=== PATIENT | male | born 1965 | race African-American/Black ===

== ENCOUNTER 2022-09-14 20:00 | Inpatient (IN) | payer OTHER ==
[2022-09-14 23:33] VITALS: BMI 22.4
[2022-09-15] MEDS ORDERED: NALOXONE HCL 0.4 MG/ML VIAL IM PRN (06:02)
[2022-09-15] MEDS ORDERED: BENZONATATE 200 MG CAPSULE PO PRN (06:02)
[2022-09-15] MEDS ORDERED: DICYCLOMINE HCL 10 MG CAPSULE PO PRN (06:02)
[2022-09-15] MEDS ORDERED: IBUPROFEN 400 MG TABLET (FP) PO PRN (06:02)
[2022-09-15] MEDS ORDERED: MAGNESIUM HYDROX 2400MG/30ML ORAL SUSPENSION 30 ML CUP PO PRN (06:02)
[2022-09-15] MEDS ORDERED: IBUPROFEN 600 MG TABLET (FP) PO PRN (06:02)
[2022-09-15] MEDS ORDERED: POLYETHYLENE GLYCOL (HEALTHYLAX) 3350 17 GM PACKET PO PRN (06:02)
[2022-09-15] MEDS ORDERED: NALOXONE HCL (KLOXXADO) 8 MG SPRAY NS PRN (06:02)
[2022-09-15] MEDS ORDERED: BENZOCAINE/MENTHOL (CHLORASEPTIC ) LOZENGE MM PRN (06:02)
[2022-09-15] MEDS ORDERED: ACETAMINOPHEN 325 MG TABLET (FP) PO PRN (06:02)
[2022-09-15] MEDS ORDERED: MAG HYDROX/AL HYDROX/SIMETH 30 ML UNIT-DOSE CUP PO PRN (06:02)
[2022-09-15] MEDS ORDERED: BISMUTH SUBSALICYLATE 524 MG/30 ML PO PRN (06:02)
[2022-09-15] MEDS ORDERED: LOPERAMIDE HCL 2 MG CAPSULE PO PRN (06:02)
[2022-09-15] MEDS ORDERED: guaiFENesin 600 MG TABLET.ER (FP) PO PRN (06:02)
[2022-09-15] MEDS ORDERED: ONDANSETRON *ODT* 4 MG TABLET SL PRN (06:02)
[2022-09-15] MEDS ORDERED: NICOTINE 10 MG CARTRIDGE (INHALER) IH PRN (06:02)
[2022-09-15] MEDS: PRENATAL VITAMINS W/ FOLIC ACID TABLET (FP) PO SCH (10:26)
[2022-09-15] MEDS: NICOTINE 14 MG/24 HOURS TOPICAL PATCH TD SCH (10:26)
[2022-09-15] MEDS ORDERED: methaDONE HCL 10 MG TABLET (FOR DETOX USE ONLY) PO ONE (11:15)
[2022-09-15 17:26] LABS: HEMATOCRIT 37.1 % (35.4-49); HEMOGLOBIN 11.6 GM/dL (11.7-16.9); MCH 22.4 pg (25.7-33.7); MCHC 31.3 g/dl (32.0-35.9); MEAN CELL VOLUME 71.5 fl (80-96); MEAN PLT VOLUME 9.4 fl (7.5-11.1); PLATELET COUNT 302 10^3/uL (134-434); RBC 5.19 M/mm3 (4.00-5.60); RDW 16.2 % (11.9-15.9); WHITE BLOOD COUNT 9.3 K/mm3 (4.0-10.0)
[2022-09-15 17:36] LABS: CALCIUM 9.1 mg/dL (8.5-10.1)
[2022-09-15 17:37] LABS: BLOOD UREA NITROGEN 21.3 mg/dL (7-18)
[2022-09-15 17:40] LABS: CREATININE 0.9 mg/dL (0.55-1.3)
[2022-09-15 17:41] LABS: BILIRUBIN,TOTAL 0.8 mg/dL (0.2-1); TOT PROT 6.1 g/dl (6.4-8.2)
[2022-09-15] MEDS ORDERED: NICOTINE POLACRILEX 2 MG GUM BUC PRN (19:17)
[2022-09-15] MEDS: MIRTAZAPINE 15 MG TABLET (FP) PO SCH (22:22)
[2022-09-15] MEDS: QUEtiapine FUMARATE 100 MG TABLET (FP) PO SCH (22:22)
[2022-09-15] MEDS: MELATONIN 5 MG TABLETS PO SCH (22:23)
[2022-09-15] MEDS: THIAMINE HCL 100 MG TABLET (FP) PO SCH (22:23)
[2022-09-16] MEDS: SERTRALINE HCL 50 MG TABLET (FP) PO SCH (11:06)
[2022-09-16] MEDS: PRENATAL VITAMINS W/ FOLIC ACID TABLET (FP) PO SCH (11:06)
[2022-09-16] MEDS: NICOTINE 14 MG/24 HOURS TOPICAL PATCH TD SCH (11:16)
[2022-09-16] MEDS: cloNIDine HCL 0.1 MG TABLET PO PRN (17:46)
[2022-09-16] MEDS: MIRTAZAPINE 15 MG TABLET (FP) PO SCH (22:22)
[2022-09-16] MEDS: MELATONIN 5 MG TABLETS PO SCH (22:22)
[2022-09-16] MEDS: QUEtiapine FUMARATE 100 MG TABLET (FP) PO SCH (22:22)
[2022-09-16] MEDS: THIAMINE HCL 100 MG TABLET (FP) PO SCH (22:22)
[2022-09-17] MEDS ORDERED: methaDONE HCL 10 MG TABLET (FOR DETOX USE ONLY) PO ONE (10:00)
[2022-09-17] MEDS: SERTRALINE HCL 50 MG TABLET (FP) PO SCH (10:23)
[2022-09-17] MEDS: PRENATAL VITAMINS W/ FOLIC ACID TABLET (FP) PO SCH (10:23)
[2022-09-17] MEDS: METHOCARBAMOL 500 MG TABLET PO PRN ×2 (10:25→17:16)
[2022-09-17] MEDS: NICOTINE 14 MG/24 HOURS TOPICAL PATCH TD SCH (10:26)
[2022-09-17] MEDS: cloNIDine HCL 0.1 MG TABLET PO PRN (13:37)
[2022-09-17] MEDS: MELATONIN 5 MG TABLETS PO SCH (22:05)
[2022-09-17] MEDS: QUEtiapine FUMARATE 100 MG TABLET (FP) PO SCH (22:05)
[2022-09-17] MEDS: MIRTAZAPINE 15 MG TABLET (FP) PO SCH (22:05)
[2022-09-17] MEDS: THIAMINE HCL 100 MG TABLET (FP) PO SCH (22:05)
[2022-09-18] MEDS: SERTRALINE HCL 50 MG TABLET (FP) PO SCH (10:10)
[2022-09-18] MEDS: PRENATAL VITAMINS W/ FOLIC ACID TABLET (FP) PO SCH (10:10)
[2022-09-18] MEDS: METHOCARBAMOL 500 MG TABLET PO PRN (10:11)
[2022-09-18] MEDS: NICOTINE 14 MG/24 HOURS TOPICAL PATCH TD SCH (10:13)
[2022-09-18] MEDS: QUEtiapine FUMARATE 100 MG TABLET (FP) PO SCH (22:03)
[2022-09-18] MEDS: THIAMINE HCL 100 MG TABLET (FP) PO SCH (22:03)
[2022-09-18] MEDS: MIRTAZAPINE 15 MG TABLET (FP) PO SCH (22:03)
[2022-09-18] MEDS: MELATONIN 5 MG TABLETS PO SCH (22:03)
[2022-09-19] MEDS ORDERED: methaDONE HCL 10 MG TABLET (FOR DETOX USE ONLY) PO ONE (10:00)
[2022-09-19] MEDS: NICOTINE 14 MG/24 HOURS TOPICAL PATCH TD SCH (10:04)
[2022-09-19] MEDS: SERTRALINE HCL 50 MG TABLET (FP) PO SCH (10:06)
[2022-09-19] MEDS: PRENATAL VITAMINS W/ FOLIC ACID TABLET (FP) PO SCH (10:06)
[2022-09-19] MEDS: MIRTAZAPINE 15 MG TABLET (FP) PO SCH (22:12)
[2022-09-19] MEDS: QUEtiapine FUMARATE 100 MG TABLET (FP) PO SCH (22:12)
[2022-09-19] MEDS: MELATONIN 5 MG TABLETS PO SCH (22:12)
[2022-09-19] MEDS: THIAMINE HCL 100 MG TABLET (FP) PO SCH (22:12)
[2022-09-20 09:53] VITALS: BP 156/91; PULSE 67; RESP 18; TEMP 98.4
[2022-09-20] MEDS: PRENATAL VITAMINS W/ FOLIC ACID TABLET (FP) PO SCH (11:00)
[2022-09-20] MEDS: NICOTINE 14 MG/24 HOURS TOPICAL PATCH TD SCH (11:00)
[2022-09-20] MEDS: SERTRALINE HCL 50 MG TABLET (FP) PO SCH (11:00)
== END 2022-09-20 09:44 | disposition home or self-care (01) | DRG 773 ==
LOC: YASAS 20:00 → Y3N 09-15 06:41
PROVIDERS: ADMIT Allergy & Immunology; ATTEND Surgery
PROC: HZ2ZZZZ Detoxification Services for Substance Abuse Treatment (ICD-10-PCS; principal; 2022-09-15)
DX: F11.23 Opioid dependence with withdrawal (principal); F14.20 Cocaine dependence, uncomplicated; F17.210 Nicotine dependence, cigarettes, uncomplicated; F31.9 Bipolar disorder, unspecified; F43.10 Post-traumatic stress disorder, unspecified; F41.9 Anxiety disorder, unspecified; D57.3 Sickle-cell trait; R76.11 Nonspecific reaction to tuberculin skin test without active tuberculosis; R53.1 Weakness; Z99.89 Dependence on other enabling machines and devices; Z28.310 Unvaccinated for COVID-19; Z28.9 Immunization not carried out for unspecified reason
CPT/HCPCS: 36415; 71046-TC-FY; 80053; 85027; 86780; 93005; 93010; C9803-CS; U0003; U0005